=== PATIENT | female | born 1955 | race Caucasian/White ===

== ENCOUNTER → 2016-04-17 | Outpatient (CLI) | payer BC ==
[~2016-04-17] MED LIST: ASPI-808 PO; CPR500T PO; CYCL1DRO OU; DIPH1TAB45 PO; DIPH25TA31 PO; DOCU-143 PO; FEXO1TAB42 PO; MESA1.2T PO; MULT1TAB69 PO; NF-URO10 PO
--- NOTE | 2016-04-17 18:24 | Diagnostic Imaging Report ---
KUB. INDICATION: Right kidney stone. COMPARISON: 04/19/2015. FINDINGS: There is a 6 mm right flank calcification again noted and appears less prominent compared to the previous study suggestive of a right kidney stone with post lithotripsy changes. No distal migration of stone fragments or other stones identified. IMPRESSION: 6 mm right kidney stone. Dictated by: Dictated on workstation # [id number]
== END ==
LOC: RAD 14:30
PROVIDERS: ATTEND Urology
DX: N20.0 Calculus of kidney (principal)
CPT/HCPCS: 74000

== ENCOUNTER 2016-04-26 05:37 | Outpatient (CLI) | payer BC ==
[~2016-04-26] VITALS: Ht 157.5 cm; Wt 65.8 kg
[~2016-04-26 05:37] MED LIST changes: -ASPI-808 PO; -CYCL1DRO OU; -DIPH25TA31 PO; -DOCU-143 PO; -MULT1TAB69 PO
[2016-04-26] MEDS ORDERED: CYCL1DRO OU (11:49)
[2016-04-26] MEDS ORDERED: ASPI-808 PO (11:49)
[2016-04-26] MEDS ORDERED: DOCU-143 PO (11:57)
[2016-04-26] MEDS ORDERED: DIPH25TA31 PO (11:57)
[2016-04-26] MEDS ORDERED: MULT1TAB69 PO (11:57)
== END 2016-04-26 11:58 ==
LOC: PREOP 05:37
PROVIDERS: ATTEND Urology
DX: Z01.818 Encounter for other preprocedural examination (principal); N20.0 Calculus of kidney

== ENCOUNTER 2016-04-30 06:00 | Day surgery (SDC) | payer BC ==
[~2016-04-30] VITALS: Ht 157.5 cm; Wt 65.8 kg
[~2016-04-30 06:00] MED LIST changes: +ASPI-808 PO; +CYCL1DRO OU; +DIPH25TA31 PO; +DOCU-143 PO; +MULT1TAB69 PO
[2016-04-30] MEDS ORDERED: LEVOFLOXACIN 250 MG/50 ML IVPB 50 ML ONE (06:07)
[2016-04-30] MEDS ORDERED: LEVOFLOXACIN 250 MG/D5W 50 ML (PRE-MIX) IV ONE (06:45)
[2016-04-30] MEDS ORDERED: CATHETER FLUSH 10 ML SYR IV PRN (06:45)
[2016-04-30] MEDS ORDERED: LACTATED RINGERS 1,000 ML IV PRN (06:48)
[2016-04-30] MEDS ORDERED: KETOROLAC 30 MG/ML VIAL ONE (06:49)
[2016-04-30] MEDS ORDERED: ONDANSETRON 4 MG/2 ML (SDV) Z0FRAN ONE (06:50)
[2016-04-30] MEDS ORDERED: proPOfol 200 MG/20 ML (DIPRIVAN) VIAL IV ONE (06:50)
[2016-04-30] MEDS ORDERED: MIDAZOLAM 2 MG/2 ML (VERSED) VIAL ONE (06:50)
[2016-04-30] MEDS ORDERED: DEXAMETHASONE PF 10 MG/ML (DECADRON) VIAL ONE (06:50)
[2016-04-30] MEDS ORDERED: SEVOFLURANE (ULTANE) 15 ML INHAL SOLN ONE ×2 (06:50→07:57)
[2016-04-30] MEDS ORDERED: fentaNYL INJECTION 100 MCG/2 ML AMP ONE (06:50)
[2016-04-30] MEDS ORDERED: LIDOCAINE PF 2% 10 ML (XYLOCAINE) AMP ONE (06:50)
[2016-04-30] MEDS ORDERED: FUROSEMIDE 40 MG/4 ML INJ (LASIX) ONE (06:50)
[2016-04-30 07:08] VITALS: BP 128/76
--- NOTE | 2016-04-30 07:08 | Progress Note-Pre Operative ---
Pre-Operative Progress Note H&P Reviewed The H&P was reviewed, patient examined and no changes noted. Date H&P Reviewed: Apr 30, 2016 Time H&P Reviewed: 07:08 Pre-Operative Diagnosis: Rt renal stone FRANCY WADDELL MD Apr 30, 2016 7:08 am
--- NOTE | 2016-04-30 07:09 | Progress Note-Post Operative ---
Post-Operative Progess Note Pre-Operative Diagnosis Rt renal stone Post-Operative Diagnosis same Post-Op Procedure Note Date of Procedure: Apr 30, 2016 Name of Procedure: Rt ESWL Anesthesia Type General FRANCY WADDELL MD Apr 30, 2016 7:09 am
--- NOTE | 2016-04-30 07:11 | Discharge Inst-Urology ---
Discharge Inst-Urology Discharge Medications New, Converted, or Re-newed RX: RX on Chart Patient Instructions/Follow Up Plan Please make appointment to been seen in office in 4 weeks. KUB prior to it. KUB on way home Post ESWL instructions Increase oral fluids for 48 hours and then as needed. Diet and Activity as tolerated. If questions or concerns contact your physician Or seek help at emergency department. FRANCY WADDELL MD Apr 30, 2016 7:11 am
[2016-04-30] MEDS ORDERED: ONDANSETRON 4 MG/2 ML (SDV) Z0FRAN IV PRN (08:00)
[2016-04-30] MEDS ORDERED: PROMETHAZINE INJ 25 MG/ML (PHENERGAN) AMP IV PRN (08:00)
[2016-04-30] MEDS ORDERED: morphine INJ 10 MG/ML 1ML (SYR OR VIAL) IV PRN (08:00)
--- NOTE | 2016-04-30 08:28 | Diagnostic Imaging Report ---
Indication: Right flank pain, renal stones. Discussion: Single view of the abdomen was obtained, comparison 04/17/2016. The previously demonstrated 6 mm right renal stone is not visualized on today's exam, either absent or obscured by overlying stool and gas within the colon. No pathologic calcifications are otherwise identified. Phleboliths within the right pelvis is stable. Normal bowel gas pattern. No acute osseous abnormality. Impression: 1. Previously demonstrated 6 mm right renal calculus is not visualized. Dictated by: Dictated on workstation # [id number]
[2016-04-30 08:45] VITALS: BP 102/70
[2016-04-30 09:15] VITALS: BP 124/75
--- NOTE | 2016-04-30 09:33 | OPERATIVE REPORT ---
PROCEDURE PHYSICIAN: FRANCY WADDELL DATE OF PROCEDURE: 04/30/2016 PREOPERATIVE DIAGNOSIS: Right renal stone. POSTOPERATIVE DIAGNOSIS: Right renal stone. OPERATION: Right ESWL. SURGEON: Lashon ANESTHESIA: General. COMPLICATIONS: None. PROCEDURE: Under satisfactory general anesthesia, the patient supine position on the ESWL table, the right renal stone was localized. Shocks were delivered KV of 5. A total of 2500 shocks completely fragmented the stone. The patient received 40 mg of Lasix and 30 mg of Toradol IV. She tolerated the procedure and anesthesia well and was sent to recovery room in stable condition. Job ID: [id number] Dictated Date: 04/30/2016 07:46:20 Telemarketing Representative Date: 04/30/2016 09:30:25 / francia
[2016-04-30 09:45] VITALS: BP 138/71
[2016-04-30 10:05] VITALS: BP 138/71
--- NOTE | 2016-04-30 10:55 | Diagnostic Imaging Report ---
EXAMINATION: KUB. INDICATION: Post lithotripsy. Right kidney stone. FINDINGS: There are right kidney stones with a fragmented appearance after lithotripsy measuring up to 4 mm in size with a smaller fragment adjacent to that seen. No other stones are identified. IMPRESSION: Interval fragmentation of a right kidney stone with the larger fragment measuring 4 mm. Dictated by: Dictated on workstation # [id number]
== END 2016-04-30 10:05 | disposition home or self-care (01) ==
LOC: SDC 06:00
PROVIDERS: ATTEND Urology
DX: N20.0 Calculus of kidney (principal); Z11.2 Encounter for screening for other bacterial diseases
CPT/HCPCS: 74000; 87081

== ENCOUNTER → 2016-05-28 | Outpatient (CLI) | payer BC ==
--- NOTE | 2016-05-28 15:38 | Diagnostic Imaging Report ---
EXAM: KUB. INDICATION: Right renal stone. COMPARISON: 04/30/2016. FINDINGS: The previously seen stone in the right kidney is the not well-visualized on the current exam. It has possibly passed. No definite urinary tract stone is identified. There is mild to moderate amounts of fecal material in the colon. Sclerotic focus in the right ischium measuring 8 mm is probably a bony island. IMPRESSION: No urinary tract stone is seen at this time. Dictated by: Dictated on workstation # [id number]
== END ==
LOC: RAD 14:13
PROVIDERS: ATTEND Urology
DX: Z98.890 Other specified postprocedural states (principal); N20.0 Calculus of kidney
CPT/HCPCS: 74000

== ENCOUNTER → 2017-06-12 | Outpatient (CLI) | payer SELFPAY ==
--- NOTE | 2017-06-12 17:08 | Diagnostic Imaging Report ---
INDICATION: Nephrolithiasis. KUB at 02:33 p.m. FINDINGS: There is a moderate amount of stool in the colon. Bowel gas pattern is normal. There are no pathologic masses or calcifications. IMPRESSION: No acute abnormalities in the abdomen. Dictated by: Dictated on workstation # [id number]
== END ==
LOC: RAD 14:03
PROVIDERS: ATTEND Urology
DX: N20.0 Calculus of kidney (principal)
CPT/HCPCS: 74018

== ENCOUNTER → 2019-02-11 | Outpatient (CLI) | payer MEDICARE, OTHER ==
--- NOTE | 2019-02-11 14:52 | Diagnostic Imaging Report ---
PATIENT HISTORY: COUGH CONGESTION NOT GETTING BETTER. TECHNIQUE: Two views of the chest. COMPARISON: 11/22/2008. FINDINGS: Lung volumes are normal. Linear opacities at the lung bases likely represent atelectasis or scarring. No pleural effusion or pneumothorax is seen. The cardiac silhouette is normal in size. No acute osseous abnormality is seen. IMPRESSION: Linear opacities in the lung bases likely represent atelectasis or scarring. Dictated by: Dictated on workstation # [id number]
== END ==
LOC: RAD 14:14
PROVIDERS: ATTEND Family Medicine
DX: R05 Cough (principal); R09.89 Other specified symptoms and signs involving the circulatory and respiratory systems
CPT/HCPCS: 71046

== ENCOUNTER 2019-05-18 05:36 | Outpatient (CLI) | payer MEDICARE, OTHER ==
[~2019-05-18] VITALS: Ht 157.5 cm; Wt 56.8 kg
[2019-05-18] MEDS ORDERED: BIOT5000 PO (10:48)
== END 2019-05-18 10:57 | disposition home or self-care (01) ==
LOC: PREOP 05:36
PROVIDERS: ATTEND Specialist
DX: Z01.818 Encounter for other preprocedural examination (principal)

== ENCOUNTER 2019-05-21 09:24 | Day surgery (SDC) | payer MEDICARE, OTHER ==
[~2019-05-21] VITALS: Ht 157.5 cm; Wt 56.8 kg
[~2019-05-21 09:24] MED LIST changes: +BIOT5000 PO
[2019-05-21 09:40] VITALS: BP 131/80
[2019-05-21] MEDS: TETRACAINE 0.5% OPHTH SOLN 4 ML BTL (SINGLE DOSE ONLY) OU PRN ×4 (09:43→10:06)
[2019-05-21] MEDS ORDERED: POVIDONE (BETADINE) OPHTH SOLN 5% 30 ML OP ONE (09:45)
[2019-05-21] MEDS ORDERED: TIMOLOL MALEATE 0.5% 5 ML (TIMOPTIC) BTL OU PRN (09:45)
[2019-05-21] MEDS ORDERED: LIDOCAINE PF 1% 2 ML VIAL IR PRN (09:45)
[2019-05-21] MEDS ORDERED: MOXIFLOXACIN OPHTH SOLN 5 MG/ML 0.3 ML SYRINGE OP ONE (09:45)
[2019-05-21] MEDS: CYCLOPENTOLATE 1% (CYCLOGYL) 2 ML DROPS OP SCH ×3 (09:56→10:06)
[2019-05-21] MEDS: PHENYLEPHRINE 10% OPHTH (NEO-SYN) 5 ML BTL OU SCH ×3 (09:56→10:06)
[2019-05-21] MEDS ORDERED: acetaZOLAMIDE ER 500 MG CAP (DIAMOX SEQUELS) PO ONE (10:30)
--- NOTE | 2019-05-21 10:43 | Ophthalmologist Pre-Op Note ---
Pre-Operative Progress Note H&P Reviewed The H&P was reviewed, patient examined and no changes noted. Date H&P Reviewed: May 21, 2019 Time H&P Reviewed: 10:42 Pre-Op Dx Cataract, Left Eye DEEPTHI HASKINS MD May 21, 2019 10:43
[2019-05-21] MEDS ORDERED: MIDAZOLAM 2 MG/2 ML (VERSED) VIAL ONE ×2 (10:45→10:49)
--- NOTE | 2019-05-21 11:11 | Ophthalmology Operative Report ---
Cataract, Miotic Pupil PREOPERATIVE DIAGNOSIS: 1. Cataract Left Eye 2. Miotic Pupil POSTOPERATIVE DIAGNOSIS: 1. Cataract Left Eye 2. Miotic Pupil PROCEDURE: 1. Cataract removal and placement of posterior chamber implant, left eye 2. Pupillary expansion with malyugin ring SURGEON: Deejay Haskins ANESTHESIA: Topical with sedation COMPLICATIONS: None ESTIMATED BLOOD LOSS: Minimal DESCRIPTION OF PROCEDURE: After proper informed consent was obtained, the patient, a 63 female, was taken to the Operating Room and the left eye was anesthetized with Tetracaine. The eye was then prepped and draped in the usual manner. A wire lid speculum was placed. A paracentesis was made at the left hand position. Preservative free l idocaine was injected into anterior chamber followed by viscoelastic. A clear corneal incision was made in the temporal position. The malyugin ring was injected into the anterior chamber and the pupil was dilated. A capsulorrhexis was preformed and the central nuclear and cortical material were removed. The posterior capsule was polished and Will 25.0 AU00T0 IOL was placed into the capsular bag. The myalgian ring was removed. The residual viscoelastic was aspirated and the balanced saline solution was injected into the anterior chamber. Moxifloxacin was injected into the anterior chamber. The wound was checked and found to be water tight. The patient tolerated the procedure well without complications. [Limbal Relaxing Incision placed ] [ ]mm at [ ]. DEEJAY HASKINS MD May 21, 2019 11:11
[2019-05-21 11:25] VITALS: BP 144/64
--- NOTE | 2019-05-21 15:11 | Anesthesia-General Post-Op ---
MAC Patient Condition Mental Status/LOC: Same as Preop Cardiovascular: Satisfactory Nausea/Vomiting: Absent Respiratory: Satisfactory Pain: Controlled Complications: Absent Post Op Complications Complications None Follow Up Care/Instructions Patient Instructions None needed. Anesthesiology Discharge Order Discharge Order Patient was seen this morning after the procedure and she was doing well, no complaints, stable vital signs, no apparent adverse anesthesia problems. RITA IRIZARRY DO May 21, 2019 15:11
== END 2019-05-21 11:25 | disposition home or self-care (01) ==
LOC: SDC 09:24
PROVIDERS: ATTEND Specialist
DX: H25.12 Age-related nuclear cataract, left eye (principal); H57.03 Miosis; K21.9 Gastro-esophageal reflux disease without esophagitis; F17.200 Nicotine dependence, unspecified, uncomplicated; Z79.82 Long term (current) use of aspirin; Z79.899 Other long term (current) drug therapy; Z88.0 Allergy status to penicillin; Z88.8 Allergy status to other drugs, medicaments and biological substances; Z90.710 Acquired absence of both cervix and uterus; Z85.72 Personal history of non-Hodgkin lymphomas; Z88.5 Allergy status to narcotic agent; Z82.61 Family history of arthritis

== ENCOUNTER → 2020-07-03 | Outpatient (CLI) | payer MEDICARE, OTHER ==
[~2020-07-03] MED LIST changes: +MULT-567 PO; -MULT1TAB69 PO
--- NOTE | 2020-07-03 14:54 | Diagnostic Imaging Report ---
INDICATION: History of renal calculi. COMPARISON: None FINDINGS: Single supine radiographic view of the abdomen was obtained and demonstrates nondistended loops of small bowel. There is no large collection of free peritoneal air. Mild air and stool are seen scattered throughout the colon. No unexpected extraosseous calcifications or radiopaque foreign bodies are seen. Bony structures show no gross acute abnormalities. IMPRESSION: 1. Nonobstructed small bowel gas pattern. Dictated by: Dictated on workstation # [id number]
== END ==
LOC: RAD 14:26
PROVIDERS: ATTEND Urology
DX: R14.3 Flatulence (principal); Z87.442 Personal history of urinary calculi
CPT/HCPCS: 74018

== ENCOUNTER 2020-10-10 05:34 | Outpatient (CLI) | payer MEDICARE, OTHER ==
[~2020-10-10] VITALS: Ht 157.5 cm; Wt 56.8 kg
[2020-10-10] MEDS ORDERED: ASPI-808 PO (08:33)
== END 2020-10-10 08:35 | disposition home or self-care (01) ==
LOC: PREOP 05:34
PROVIDERS: ATTEND Specialist
DX: Z01.818 Encounter for other preprocedural examination (principal)

== ENCOUNTER 2020-10-13 08:40 | Day surgery (SDC) | payer MEDICARE, OTHER ==
[~2020-10-13] VITALS: Ht 157 cm; Wt 56.8 kg
[2020-10-13] MEDS ORDERED: PHENYLEPHRINE 10% OPHTH (NEO-SYN) 5 ML BTL OU PRN (09:00)
[2020-10-13] MEDS ORDERED: TETRACAINE 0.5% OPHTH SOLN 4 ML BTL (SINGLE DOSE ONLY) OU PRN (09:00)
[2020-10-13] MEDS ORDERED: TROPICAMIDE 1% OPH SOLN (MYDRIACYL) 15 ML BTL OU PRN (09:00)
[2020-10-13 09:07] VITALS: BP 145/76
--- NOTE | 2020-10-13 09:10 | Ophthalmologist Pre-Op Note ---
Pre-Operative Progress Note H&P Reviewed The H&P was reviewed, patient examined and no changes noted. Date H&P Reviewed: Oct 13, 2020 Time H&P Reviewed: 09:10 Pre-Op Dx Secondary Cataract, Right Eye DEEPTHI HASKINS MD Oct 13, 2020 09:10
--- NOTE | 2020-10-13 10:00 | Ophthalmology Operative Report ---
YAG Capsulotomy PREOPERATIVE DIAGNOSIS: Secondary Cataract Left Eye POSTOPERATIVE DIAGNOSIS: Secondary Cataract Left Eye PROCEDURE: YAG Capsulotomy, left eye SURGEON: Deejay Haskins ANESTHESIA: Topical anesthesia COMPLICATIONS: None ESTIMATED BLOOD LOSS: Minimal DESCRIPTION OF PROCEDURE: After proper informed consent was obtained, the patient's, a 64 female left eye received one drop of Tropicamide and one drop of Tetracaine. The patient was then placed at the YAG laser and using a power of [4.0 ] millijoules and [18 ] bursts were used to fashion a central capsulotomy. The patient tolerated the procedure well without complications. DEEJAY HASKINS MD Oct 13, 2020 10:00
== END 2020-10-13 09:45 ==
LOC: SDC 08:40
PROVIDERS: ATTEND Specialist
DX: H26.492 Other secondary cataract, left eye (principal); K59.00 Constipation, unspecified; F17.200 Nicotine dependence, unspecified, uncomplicated; Z79.899 Other long term (current) drug therapy; Z79.82 Long term (current) use of aspirin; Z79.1 Long term (current) use of non-steroidal anti-inflammatories (NSAID)

== ENCOUNTER → 2021-07-02 | Outpatient (CLI) | payer MEDICARE, OTHER ==
--- NOTE | 2021-07-02 18:52 | Diagnostic Imaging Report ---
HISTORY: Kidney stones. COMPARISON: 07/03/2020. TECHNIQUE: Frontal views of the abdomen. FINDINGS: No calculi are seen about the kidneys bilaterally. No calculi are seen in the pelvis. No distended loops of small bowel are seen. There is no large collection of free air. IMPRESSION: 1. No radiographic evidence of renal calculi. Dictated by: Dictated on workstation # [id number]
== END ==
LOC: RAD 15:16
PROVIDERS: ATTEND Urology
DX: Z87.442 Personal history of urinary calculi (principal)
CPT/HCPCS: 74018

== ENCOUNTER 2022-12-20 05:29 | Outpatient (CLI) | payer MEDICARE, OTHER ==
[~2022-12-20] VITALS: Ht 157.5 cm; Wt 72.7 kg
== END 2022-12-20 11:32 | disposition home or self-care (01) ==
LOC: PREOP 05:29
PROVIDERS: ATTEND Otolaryngology Otolaryngology/Facial Plastic Surgery
DX: Z01.818 Encounter for other preprocedural examination (principal)

== ENCOUNTER 2022-12-27 06:49 | Day surgery (SDC) | payer MEDICARE, OTHER ==
[~2022-12-27] VITALS: Ht 157.5 cm; Wt 72.7 kg
[2022-12-27] VITALS (11 sets, daily range): BP systolic 112–141; BP diastolic 55–80
[2022-12-27] MEDS ORDERED: LACTATED RINGERS 1,000 ML 1,000 ML IV PRN (07:15)
[2022-12-27 07:41] LABS: BASOPHILS # (AUTO) 0.1 10^3/uL (0.0-0.1); BASOPHILS % (AUTO) 1 % (0-10); EOSINOPHILS # (AUTO) 0.2 10^3/uL (0.0-0.3); EOSINOPHILS % (AUTO) 2 % (0-10); HEMATOCRIT 43 % (35-52); HEMOGLOBIN 13.8 g/dL (11.5-16.0); LYMPHOCYTES % (AUTO) 21 % (12-44); MEAN CORPUSCULAR HEMOGLOBIN 32 pg (25-34); MEAN CORPUSCULAR HGB CONC 32 g/dL (32-36); MEAN CORPUSCULAR VOLUME 99 fL (80-99); MEAN PLATELET VOLUME 10.5 fL (9.0-12.2); MONOCYTES # (AUTO) 0.8 10^3/uL (0.0-1.0); MONOCYTES % (AUTO) 9 % (0-12); NEUTROPHILS # (AUTO) 6.3 10^3/uL (1.8-7.8); NEUTROPHILS % (AUTO) 67 % (42-75); PLATELET COUNT 321 10^3/uL (130-400); WHITE BLOOD COUNT 9.3 10^3/uL (4.3-11.0)
[2022-12-27 07:58] LABS: CALCIUM 9.2 MG/DL (8.5-10.1); CREATININE SERUM 0.88 MG/DL (0.60-1.30); POTASSIUM 3.9 MMOL/L (3.6-5.0)
[2022-12-27] MEDS ORDERED: LIDOCAINE/EPI 1%-1:200,000 (XYLOCAINE) 30 ML VIAL ONE (08:16)
[2022-12-27] MEDS ORDERED: MUPIROCIN 2% OINTMENT 22 GM TUBE ONE (08:27)
[2022-12-27] MEDS ORDERED: MIDAZOLAM INJ 2 MG/2 ML VIAL ONE (08:29)
[2022-12-27] MEDS ORDERED: ONDANSETRON INJECTION 4 MG/2 ML (SDV) ONE (08:29)
[2022-12-27] MEDS ORDERED: proPOfol INJECTION 200 MG/20 ML VIAL IV ONE (08:29)
[2022-12-27] MEDS ORDERED: fentaNYL INJECTION 100 MCG/2 ML VIAL ONE (08:29)
[2022-12-27] MEDS ORDERED: SEVOFLURANE (ULTANE) 15 ML INHAL SOLN ONE (08:29)
[2022-12-27] MEDS ORDERED: LIDOCAINE PF 2% 5 ML VIAL ONE (08:29)
[2022-12-27] MEDS ORDERED: dexAMETHasone INJ 10 MG/ML 1 ML VIAL ONE (08:29)
[2022-12-27] MEDS ORDERED: MUPIROCIN 2% OINTMENT 22 GM TUBE TOP ONE (09:19)
--- NOTE | 2022-12-27 09:24 | Progress Note-Pre Operative ---
Pre-Operative Progress Note Date of Available H&P: Dec 27, 2022 Date H&P Reviewed: Dec 27, 2022 Time H&P Reviewed: 08:30 History & Physical: H&P Reviewed, Patient Examed, No changes noted Changes from last HP none Pre-Operative Diagnosis: Left Nasal AlaLETITIA Sanabria MD Dec 27, 2022 09:24
--- NOTE | 2022-12-27 09:25 | Progress Note-Post Operative ---
Post-Operative Progess Note Surgeon (s)/Hand Cloth Folder (s) Surgeon LETITIA ORDAZ MD Hand Cloth Folder n/a Pre-Operative Diagnosis Left Nasal Alae Post-Operative Diagnosis same Post-Op Procedure Note Date of Procedure: Dec 27, 2022 Name of Procedure Performed: Excision of Left Nasal Alae with Complex Repair Description & Findings Description and Findings: n/a Anesthesia Type lma Estimated Blood Loss minimal Packing none. Specimen(s) collected/removed left nasal alae lesion to pathology LETITIA ORDAZ MD Dec 27, 2022 09:25
[2022-12-27] MEDS ORDERED: ACETAMINOPHEN 325 MG TABLET PO PRN (09:30)
--- NOTE | 2022-12-27 09:55 | Anesthesia-General Post-Op ---
General Patient Condition Mental Status/LOC: Same as Preop Cardiovascular: Satisfactory Nausea/Vomiting: Absent Respiratory: Satisfactory Pain: Controlled Complications: Absent Post Op Complications Complications None Follow Up Care/Instructions Patient Instructions None needed. Anesthesia/Patient Condition Patient Condition Patient is doing well, no complaints, stable vital signs, no apparent adverse anesthesia problems. No complications reported per nursing. FREDI BECERRA CRNA Dec 27, 2022 09:55
[2022-12-27] MEDS ORDERED: morphine INJ 10 MG/ML 1ML (SYR OR VIAL) IVP ONE (10:00)
[2022-12-27] MEDS ORDERED: ONDANSETRON INJECTION 4 MG/2 ML (SDV) IVP PRN (10:00)
[2022-12-27] MEDS ORDERED: PROMETHAZINE INJ 25 MG/ML VIAL IVP ONE (10:00)
[2022-12-27] MEDS ORDERED: TRM50T PO (11:12)
== END 2022-12-27 11:55 | disposition home or self-care (01) ==
LOC: SDC 06:49
PROVIDERS: ATTEND Otolaryngology Otolaryngology/Facial Plastic Surgery
DX: C44.311 Basal cell carcinoma of skin of nose (principal); E66.9 Obesity, unspecified; F17.210 Nicotine dependence, cigarettes, uncomplicated; Z68.30 Body mass index [BMI] 30.0-30.9, adult; Z28.310 Unvaccinated for COVID-19
CPT/HCPCS: 36415; 80048; 85025; 87081